=== PATIENT | male | born 1935 | race Caucasian/White ===

== ENCOUNTER 2017-07-22 14:43 | Emergency (ER) | payer OTHER ==
[~2017-07-22] VITALS: Ht 167.6 cm; Wt 80.0 kg
[2017-07-22 14:46] VITALS: BP 168/84; PULSE 67; RESP 16; TEMP 98.1; O2SAT 96
--- NOTE | 2017-07-22 15:05 | PD ---
HPI Chief Complaint: Abdominal Pain Time Seen by Provider: 14:52 Travel History International Travel<30 days: No Contact w/Intl Traveler<30days: No Traveled to known affect area: No History of Present Illness HPI This 82-year-old male is complaining of abdominal pain. Been having abdominal pain off and on for the past 3 days. First time it happened was about 3 days ago. The pain seemed to let up a little bit when he passes gas. He has not had a bowel movement since the pain started. Since yesterday the pain has been in the abdomen but also around to the back and actually right now he is having back pain. He has not vomited. He has had surgery for a navel hernia and also has had a TURP done in 2003. He has a history of coronary bypass several years ago. He has not had any recent chest pain. There is been no diarrhea. He is not aware of fever or chills. PFSH Past Medical History Hx Anticoagulant Therapy: Yes (ASA 81MG DAILY) Cardiovascular Problems: Yes (HTN) Social History Tobacco Use: No Allergies-Medications (Allergen,Severity, Reaction): Coded Allergies: No Known Allergies (Verified Allergy, Unknown, 07/22/17) Reported Meds & Prescriptions Reported Meds & Active Scripts Active Reported Folic Acid 0.8 Mg Tab 800 Mcg PO DAILY Cyanocobalamin Inj (Cyanocobalamin) 1,000 Mcg/Ml Inj 1,000 Mcg IM Q30D Combivent Respimat Inh (Ipratropium-Albuterol Inh) 20-100 Correction/Act Aero 1 Puff INH QID Pravastatin 40 Mg Tab 40 Mg PO HS Losartan (Losartan Potassium) 50 Mg Tab 50 Mg PO DAILY Metoprolol Tartrate 50 Mg Tab 50 Mg PO BID Metformin (Metformin HCl) 500 Mg Tab 500 Mg PO DAILY With a meal Aspirin Low Dose (Aspirin) 81 Mg Chew 81 Mg CHEW DAILY Review of Systems General / Constitutional: No: Fever, Chills Eyes: No: Diploplia, Blurred Vision HENT: No: Headaches, Vertigo Cardiovascular: No: Chest Pain or Discomfort, Palpitations Respiratory: No: Cough, Shortness of Breath Gastrointestinal: Positive: Abdominal Pain, Constipation, No: Vomiting, Diarrhea Genitourinary: No: Urgency, Frequency Musculoskeletal: No: Myalgias, Arthralgias Skin: No Rash, No Itching Neurologic: No: Weakness, Coordination Problem Psychiatric: No: Anxiety Endocrine: No: Heat Intolerance, Cold Intolerance Hematologic/Lymphatic: No: Easy Bruising Physical Exam Narrative GENERAL: Well-developed male SKIN: Focused skin assessment warm/dry. HEAD: Atraumatic. Normocephalic. EYES: Pupils equal and round. No scleral icterus. No injection or drainage. ENT: No nasal bleeding or discharge. Mucous membranes pink and moist. NECK: Trachea midline. No JVD. CARDIOVASCULAR: Regular rate and rhythm. No murmur appreciated. RESPIRATORY: No accessory muscle use. Clear to auscultation. Breath sounds equal bilaterally. GASTROINTESTINAL: Abdomen soft, mild diffuse tenderness without guarding or rigidity, nondistended. Hepatic and splenic margins not palpable. MUSCULOSKELETAL: No obvious deformities. No clubbing. No cyanosis. No edema. NEUROLOGICAL: Awake and alert. No obvious cranial nerve deficits. Motor grossly within normal limits. Normal speech. PSYCHIATRIC: Appropriate mood and affect; insight and judgment normal. Data Data Last Documented VS Orders Orders Complete Blood Count With Diff (07/22/17 15:01) Comprehensive Metabolic Panel (07/22/17 15:01) Lipase (07/22/17 15:01) Urinalysis - C+S If Indicated (07/22/17 15:01) Ct Abd/Pel W Iv Contrast(Rout) (07/22/17 15:01) Iohexol 350 Inj (Omnipaque 350 Inj) (07/22/17 16:07) Ed Discharge Order (07/22/17 16:43) Labs Laboratory Tests Test 07/22/17 15:24 07/22/17 16:17 White Blood Count 11.1 TH/MM3 Red Blood Count 4.99 MIL/MM3 Hemoglobin 14.9 GM/DL Hematocrit 46.1 % Mean Corpuscular Volume 92.3 FL Mean Corpuscular Hemoglobin 29.9 PG Mean Corpuscular Hemoglobin Concent 32.4 % Red Cell Distribution Width 13.6 % Platelet Count 392 TH/MM3 Mean Platelet Volume 8.2 FL Neutrophils (%) (Auto) 61.0 % Lymphocytes (%) (Auto) 23.8 % Monocytes (%) (Auto) 10.5 % Eosinophils (%) (Auto) 4.0 % Basophils (%) (Auto) 0.7 % Neutrophils # (Auto) 6.8 TH/MM3 Lymphocytes # (Auto) 2.6 TH/MM3 Monocytes # (Auto) 1.2 TH/MM3 Eosinophils # (Auto) 0.4 TH/MM3 Basophils # (Auto) 0.1 TH/MM3 CBC Comment DIFF FINAL Differential Comment Blood Urea Nitrogen 21 MG/DL Creatinine 1.20 MG/DL Random Glucose 97 MG/DL Total Protein 7.2 GM/DL Albumin 3.2 GM/DL Calcium Level 8.2 MG/DL Alkaline Phosphatase 83 U/L Aspartate Amino Transf (AST/SGOT) 24 U/L Alanine Aminotransferase (ALT/SGPT) 21 U/L Total Bilirubin 0.3 MG/DL Sodium Level 141 MEQ/L Potassium Level 3.9 MEQ/L Chloride Level 108 MEQ/L Carbon Dioxide Level 26.0 MEQ/L Anion Gap 7 MEQ/L Estimat Glomerular Filtration Rate 58 ML/MIN Lipase 220 U/L Urine Color YELLOW Urine Turbidity CLEAR Urine pH 5.5 Urine Specific [place] 1.025 Urine Protein NEG mg/dL Urine Glucose (UA) NEG mg/dL Urine Ketones NEG mg/dL Urine Occult Blood MOD Urine Nitrite NEG Urine Bilirubin NEG Urine Urobilinogen 0.2 MG/DL Urine Leukocyte Esterase NEG Urine RBC 0-3 /hpf Urine WBC 0-2 /hpf Urine Squamous Epithelial Cells 0-5 /hpf Urine Mucus FEW /lpf Microscopic Urinalysis Comment CULT NOT INDICATED MDM Medical Decision Making Medical Screen Exam Complete: Yes Emergency Medical Condition: Yes Medical Record Reviewed: Yes Differential Diagnosis Differential includes gastroenteritis, bowel obstruction, aortic aneurysm Narrative Course Lab work in CT scan have been ordered. Results are pending and disposition to be determined by oncoming physician Diagnosis Primary Impression: Abdominal pain Orlando Johnson MD Jul 22, 2017 15:05
[2017-07-22] MEDS ORDERED: LOSA50TA PO (15:12)
[2017-07-22] MEDS ORDERED: ASPI81CH6 CHEW (15:12)
[2017-07-22] MEDS ORDERED: PRAV40TA2 PO (15:12)
[2017-07-22] MEDS ORDERED: IPRAAER INH (15:12)
[2017-07-22] MEDS ORDERED: METO50TA PO (15:12)
[2017-07-22] MEDS ORDERED: METF500T PO (15:12)
[2017-07-22] MEDS ORDERED: CYAN1000P IM (15:12)
[2017-07-22 15:31] LABS: AUTOMATED NEUTROPHIL # 6.8 TH/MM3 (1.8-7.7); BASOPHIL # 0.1 TH/MM3 (0-0.2); BASOPHIL % 0.7 % (0.0-2.0); EOSINOPHIL # 0.4 TH/MM3 (0-0.4); HEMATOCRIT 46.1 % (39.0-51.0); HEMOGLOBIN 14.9 GM/DL (13.0-17.0); LYMPH % 23.8 % (9.0-44.0); LYMPHOCYTE # 2.6 TH/MM3 (1.0-4.8); MEAN CELL VOLUME 92.3 FL (80.0-100.0); MEAN CORPUSCULAR HEMOGLOBIN 29.9 PG (27.0-34.0); MEAN CORPUSCULAR HGB CONC 32.4 % (32.0-36.0); MEAN PLATELET VOLUME 8.2 FL (7.0-11.0); MONO % 10.5 % (0.0-8.0); MONOCYTE # 1.2 TH/MM3 (0-0.9); PLATELET COUNT 392 TH/MM3 (150-450); RED BLOOD COUNT 4.99 MIL/MM3 (4.50-5.90); RED CELL DISTRIBUTION WIDTH 13.6 % (11.6-17.2); WHITE BLOOD COUNT 11.1 TH/MM3 (4.0-11.0)
[2017-07-22] MEDS ORDERED: FOLI800T PO (15:36)
[2017-07-22 15:40] LABS: CHLORIDE 108 MEQ/L (98-107); SODIUM (NA) 141 MEQ/L (136-145)
[2017-07-22 15:44] LABS: ALBUMIN 3.2 GM/DL (3.4-5.0); CALCIUM 8.2 MG/DL (8.5-10.1); GLUCOSE,RANDOM 97 MG/DL (74-106)
[2017-07-22 15:45] LABS: BLOOD UREA NITROGEN 21 MG/DL (7-18)
[2017-07-22 15:47] LABS: ALT (GPT) 21 U/L (12-78); AST (GOT) 24 U/L (15-37); GLOMERULAR FILTRATION RATE 58 ML/MIN (>89)
[2017-07-22 15:49] LABS: TOTAL BILIRUBIN ADULT 0.3 MG/DL (0.2-1.0); TOTAL PROTEIN 7.2 GM/DL (6.4-8.2)
[2017-07-22 15:50] LABS: ALKALINE PHOSPHATASE 83 U/L (45-117)
[2017-07-22] MEDS ORDERED: IOHEXOL 350 MG/ML 10 ML VIAL (for RAD DIAG) IVCONTRAST ONE (16:07)
--- NOTE | 2017-07-22 16:22 | RADRPT ---
EXAM DATE/TIME: 07/22/2017 15:57 [facility] COMPARISON: No previous studies available for comparison. INDICATIONS : Abdominal and low back pain. Constipation x 3 days. IV CONTRAST: 85 cc Omnipaque 350 (iohexol) IV ORAL CONTRAST: No oral contrast ingested. RADIATION DOSE: 16.11 CTDIvol (mGy) MEDICAL HISTORY : Hypertension. Diabetes mellitus type 2. SURGICAL HISTORY : CABG Umbilical hernia repair.TURP ENCOUNTER: Initial ACUITY: 3 days PAIN SCALE: 6/10 LOCATION: Diffuse abdomen. TECHNIQUE: Volumetric scanning of the abdomen and pelvis was performed. Using automated exposure control and ad justment of the mA and/or kV according to patient size, radiation dose was kept as low as reasonably achievable to obtain optimal diagnostic quality images. DICOM format image data is available electro nically for review and comparison. FINDINGS: Examination of the lung bases demonstrates no abnormality. No pleural fluid is identified. No pulmona ry nodules are present. The liver and spleen are normal in size and no focal defects are identified w ith the exception of a probable hemangioma segment 2 measuring 10 mm. Macro MR rectu.. The gallbladde r and pancreas are unremarkable. No intrahepatic or extrahepatic ductal dilatation is seen. Multiple bilateral renal cysts are present though there is a thickened wall involving one of the cyst in super ior pole left kidney. Bilateral parapelvic cysts are present. No abnormally enlarged lymph nodes are identified. Examination of the pelvis demonstrates no evidence of free fluid or pelvic mass. No abnormally enlarg ed inguinal or retroperitoneal lymph nodes are present. The bladder is unremarkable. The prostate gla nd is markedly enlarged impinging on the bladder base. No focal masses are identified. CONCLUSION: 1. No evidence of acute abdominal or pelvic process. No masses are identified. 2. Probable hemangioma within the liver. 3. Complicated cyst upper pole left kidney 4. Both of these findings could be evaluated by contrast-enhanced MRI Estuardo Logan MD on July 22, 2017 at 16:10 Board Certified Radiologist. This report was verified electronically.
[2017-07-22 16:27] LABS: BILIRUBIN, URINE NEG (NEG); BLOOD, URINE MOD (NEG); GLUCOSE,URINE NEG (NEG); KETONE, URINE NEG (NEG); NITRITE,URINE NEG (NEG); PH, URINE 5.5 (5.0-8.5); URINE COLOR YELLOW (YELLW/STRAW); URINE LEUKOCYTE ESTERASE NEG (NEG)
--- NOTE | 2017-07-22 16:35 | PD ---
Physical Exam Narrative Patient was seen by ED physician and signed out to me. Data Data Last Documented VS Vital Signs Date Time Temp Pulse Resp B/P (MAP) Pulse Ox O2 Delivery O2 Flow Rate FiO2 07/22/17 14:46 98.1 67 16 168/84 (112) 96 Orders Orders Complete Blood Count With Diff (07/22/17 15:01) Comprehensive Metabolic Panel (07/22/17 15:01) Lipase (07/22/17 15:01) Urinalysis - C+S If Indicated (07/22/17 15:01) Ct Abd/Pel W Iv Contrast(Rout) (07/22/17 15:01) Iohexol 350 Inj (Omnipaque 350 Inj) (07/22/17 16:07) Labs Laboratory Tests Test 07/22/17 15:24 07/22/17 16:17 White Blood Count 11.1 TH/MM3 Red Blood Count 4.99 MIL/MM3 Hemoglobin 14.9 GM/DL Hematocrit 46.1 % Mean Corpuscular Volume 92.3 FL Mean Corpuscular Hemoglobin 29.9 PG Mean Corpuscular Hemoglobin Concent 32.4 % Red Cell Distribution Width 13.6 % Platelet Count 392 TH/MM3 Mean Platelet Volume 8.2 FL Neutrophils (%) (Auto) 61.0 % Lymphocytes (%) (Auto) 23.8 % Monocytes (%) (Auto) 10.5 % Eosinophils (%) (Auto) 4.0 % Basophils (%) (Auto) 0.7 % Neutrophils # (Auto) 6.8 TH/MM3 Lymphocytes # (Auto) 2.6 TH/MM3 Monocytes # (Auto) 1.2 TH/MM3 Eosinophils # (Auto) 0.4 TH/MM3 Basophils # (Auto) 0.1 TH/MM3 CBC Comment DIFF FINAL Differential Comment Blood Urea Nitrogen 21 MG/DL Creatinine 1.20 MG/DL Random Glucose 97 MG/DL Total Protein 7.2 GM/DL Albumin 3.2 GM/DL Calcium Level 8.2 MG/DL Alkaline Phosphatase 83 U/L Aspartate Amino Transf (AST/SGOT) 24 U/L Alanine Aminotransferase (ALT/SGPT) 21 U/L Total Bilirubin 0.3 MG/DL Sodium Level 141 MEQ/L Potassium Level 3.9 MEQ/L Chloride Level 108 MEQ/L Carbon Dioxide Level 26.0 MEQ/L Anion Gap 7 MEQ/L Estimat Glomerular Filtration Rate 58 ML/MIN Lipase 220 U/L Urine Color YELLOW Urine Turbidity CLEAR Urine pH 5.5 Urine Specific [place] 1.025 Urine Protein NEG mg/dL Urine Glucose (UA) NEG mg/dL Urine Ketones NEG mg/dL Urine Occult Blood MOD Urine Nitrite NEG Urine Bilirubin NEG Urine Urobilinogen 0.2 MG/DL Urine Leukocyte Esterase NEG MDM Supervised Visit with RAY: No Interpretation(s) Last Impressions Abdomen/Pelvis CT 07/22/17 1501 Signed Impressions: Service Date/Time: June 15:57 - CONCLUSION: 1. No evidence of acute abdominal or pelvic process. No masses are identified. 2. Probable hemangioma within the liver. 3. Complicated cyst upper pole left kidney 4. Both of these findings could be evaluated by contrast-enhanced MRI Estuardo Logan MD 1633 PM. CBC within normal limits. BUN 21. UA is negative. Diagnosis Primary Impression: Abdominal colic Additional Impression: Lumbar strain Qualified Codes: S39.012A - Strain of muscle, fascia and tendon of lower back , initial encounter Patient Instructions: General Instructions Additional Instruction: [id number] stool softener as needed for constipation. Tylenol for back pain. Follow-up with personal physician. Return if worse. Med/Other Pt SpecificInfo: No Change to Meds Disposition: 01 DISCHARGE HOME Condition: Stable Kelby Padilla MD Jul 22, 2017 16:35
[2017-07-22 16:45] LABS: MUCUS URINE FEW /lpf (OCC); RBC, URINE 0-3 /hpf (0-3); SQUAMOUS EPITHELIAL CELL URINE 0-5 /hpf (0-5); WBC, URINE 0-2 /hpf (0-5)
[2017-07-22 17:03] VITALS: BP 132/78
== END 2017-07-22 17:05 | disposition home or self-care (01) ==
LOC: PHED 14:43
DX: R10.9 Unspecified abdominal pain (principal); S39.012A Strain of muscle, fascia and tendon of lower back, initial encounter; X58.XXXA Exposure to other specified factors, initial encounter
CPT/HCPCS: 74177; 80053; 81001; 83690; 85025; 99284; Q9967